=== PATIENT | female | born 1995 | race African-American/Black ===

== ENCOUNTER 2019-01-15 16:43 | Emergency (ER) | payer SELFPAY ==
--- NOTE | 2019-01-15 18:56 | ED ---
Skin Complaint - HPI Summary HPI Summary: 23 year old female presents with rash for the past couple weeks. States that she just started with little vesicles on her hand. She states she popped them and got clear drainage from them. No pus. No fevers. No recent illness. Is not on any current medications. Denies any recent antibiotics. States the rash is itchy. States she's been having very dry skin. States that she took some Benadryl and seemed to make the rash worse. States that it is on her hands. She also developed a different rash under her armpits. She states this rash is also states she has been spreading to her back into her lower abdomen. Never had this rash before. No new soaps or products. - History of Current Complaint Chief Complaint: EDRashSkinAbscess Time Seen by Provider: 01/15/19 18:32 Stated Complaint: RASH PER PT Pain Intensity: 7 - Allergy/Home Medications Allergies/Adverse Reactions: Allergies Allergy/AdvReac Type Severity Reaction Status Date / Time No Known Allergies Allergy Verified 01/15/19 16:48 PMH/Surg Hx/FS Hx/Imm Hx Endocrine/Hematology History: Denies: Hx Anticoagulant Therapy Respiratory History: Denies: Hx Asthma Infectious Disease History: No Infectious Disease History: Denies: Traveled Outside the [place] in Last 30 Days - Family History Known Family History: Positive: Non-Contributory - Social History Alcohol Use: Occasionally Substance Use Type: Reports: None Smoking Status (MU): Never Smoked Tobacco Review of Systems Negative: Fever Negative: Chest Pain Negative: Shortness Of Breath Positive: Rash All Other Systems Reviewed And Are Negative: Yes Physical Exam Triage Information Reviewed: Yes Vital Signs On Initial Exam: Initial Vitals Temp Pulse Resp BP Pulse Ox 97.6 F 74 20 149/83 98 01/15/19 16:45 01/15/19 16:45 01/15/19 16:45 01/15/19 16:45 01/15/19 16:45 Vital Signs Reviewed: Yes Appearance: Positive: Well-Appearing Skin: Positive: Warm, Dry, Other - blister like rash on bilteral hands with clear blisters present, neg nikolsky, patch like rash with scaling under arms and along bra and pants line Head/Face: Positive: Normal Head/Face Inspection Eyes: Positive: Normal, Conjunctiva Clear ENT: Positive: Pharynx normal Respiratory/Lung Sounds: Positive: Clear to Auscultation, Breath Sounds Present Cardiovascular: Positive: Normal, RRR Musculoskeletal: Positive: Normal, Strength/ROM Intact - hands Neurological: Positive: Normal Psychiatric: Positive: Normal Diagnostics - Vital Signs Vital Signs Temp Pulse Resp BP Pulse Ox 01/15/19 16:45 97.6 F 74 20 149/83 98 - Laboratory Lab Statement: Any lab studies that have been ordered have been reviewed, and results considered in the medical decision making process. Course/Dx - Course Course Of Treatment: 23 year old female presents with rash for the past couple weeks. States that she just started with little vesicles on her hand. She states she popped them and got clear drainage from them. No pus. No fevers. No recent illness. Is not on any current medications. Denies any recent antibiotics. States the rash is itchy. States she's been having very dry skin. States that she took some Benadryl and seemed to make the rash worse. States that it is on her hands. She also developed a different rash under her armpits. She states this rash is also states she has been spreading to her back into her lower abdomen. Never had this rash before. No new soaps or products. On exam has a vesicle like lesions on bilateral hands. Also has a patch-like rash under arms and back will treat as potential tinea versicolor. We'll treat with ketoconazole. 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 We'll treat with steroid. Gave referral to dermatology. Patient understands agrees plan. - Differential Diagnoses - Skin Complaint Differential Diagnoses: Contact Dermatitis, Eczema, Tinea - Diagnoses Provider Diagnoses: Rash Discharge - Sign-Out/Discharge Documenting (check all that apply): Patient Departure Patient Received Moderate/Deep Sedation with Procedure: No - Discharge Plan Condition: Good Disposition: HOME Prescriptions: Ketoconazole 120 ml TP DAILY #1 shampoo Triamcinolone 0.5% OINT * 1 applic TOPICAL BID #1 tube Patient Education Materials: Dyshidrotic Eczema (ED) Referrals: Parminder Herron MD [Medical Doctor] - No Primary Care Phys,NOPCP [Primary Care Provider] - Additional Instructions: apply soap to rash across body, lather, leave on 5 minutes, and rinse apply ointment to hands twice a day use vaseline on skin Follow up with dermatology Return to ED if develop any new or worsening symptoms - Billing Disposition and Condition Condition: GOOD Disposition: Home
[2019-01-15 19:10] VITALS: BP 138/86
== END 2019-01-15 19:09 | disposition home or self-care (01) ==
LOC: ED 16:43
DX: R21 Rash and other nonspecific skin eruption (principal)
CPT/HCPCS: 99281